=== PATIENT | female | born 1975 | race Two or more races ===

== ENCOUNTER → 2018-04-29 | Day surgery (SDC) | payer MEDICAID ==
[~2018-04-29] MED LIST: GLYCOPYRROLATE 0.2 MG/ML 1ML VIAL ONE; KETOROLAC TROMETH 30 MG/ML 1ML VIAL IV ONE; KETOROLAC TROMETH 60MG/2ML VIAL IM ONE; MEPERIDINE HCL (50 MG/ML) 1 ML VIAL ONE; METOCLOPRAMIDE HCL 5MG/ml INJ 2ml VIAL IV ONE; MIDAZOLAM HCL 1MG/1ML-2 ML VIAL ONE; NEOSTIGMINE 1 MG/ML INJ (10mg/10ML VIAL) ONE; ONDANSETRON HCL 4 MG/2 ML VIAL ONE; PROPOFOL 10 MG/ML 20 ML IV ONE; ROCURONIUM 10MG/ML 10ML VIAL IV ONE; SODIUM CHLORIDE LOCK 10 ML ONE; SUCCINYLCHOLINE CHLORIDE 20 MG/ML 10ML VIAL IV ONE; fentaNYL CITRATE 100 MCG/2 ML VL IV ONE; fentaNYL CITRATE 100 MCG/2 ML VL ONE
[2018-04-29 09:51] VITALS: BP 111/64
== END ==
LOC: SUR 06:42
PROVIDERS: ATTEND Obstetrics & Gynecology Gynecologic Oncology
DX: D26.9 Other benign neoplasm of uterus, unspecified (principal); Z30.2 Encounter for sterilization; N92.0 Excessive and frequent menstruation with regular cycle; Z30.432 Encounter for removal of intrauterine contraceptive device; N73.6 Female pelvic peritoneal adhesions (postinfective); E66.9 Obesity, unspecified; K21.9 Gastro-esophageal reflux disease without esophagitis; Z3A.08 8 weeks gestation of pregnancy; Z90.49 Acquired absence of other specified parts of digestive tract; Z90.710 Acquired absence of both cervix and uterus; Z68.32 Body mass index [BMI] 32.0-32.9, adult
CPT/HCPCS: 58562; 58671; J2175; J2765; J3010; J7030; J0330; J1885; J2250; J2405; J2704

== ENCOUNTER 2022-06-23 15:33 | Emergency (ER) | payer BC, MEDICAID ==
[~2022-06-23] VITALS: Ht 139.7 cm; Wt 68.5 kg
[2022-06-23 17:12] LABS: Basophils # (auto) 0 10 ^3/uL (0-0.2); Basophils % (auto) 0.5 % (0.0-2.0); Eosinophils # (auto) 0.1 10 ^3/uL (0-0.8); Eosinophils % (auto) 1.6 % (0.0-7.0); Hematocrit 41.8 % (36.0-46.0); Hemoglobin 14.3 g/dL (12.2-16.2); Lymphocytes # (auto) 2.5 10 ^3/uL (0.4-5.4); Lymphocytes % (auto) 40.7 % (10.0-50.0); Mean Corpuscular Hemoglobin 29.4 pg (28.0-32.0); Mean Corpuscular Hgb Conc. 34.3 g/dL (32.0-36.0); Mean Corpuscular Volume 85.8 fL (80.0-100.0); Monocytes # (auto) 0.4 10 ^3/uL (0-1.3); Monocytes % (auto) 6.6 % (0.0-12.0); Neutrophils # (auto) 3.1 10 ^3/uL (1.6-8.6); Neutrophils % (auto) 50.6 % (37.0-80.0); Nucleated Red Blood Cells % 0.1 %; Red Blood Cells 4.87 10^6/uL (4.0-5.20); Red Cell Distribution Width 13.3 % (11.8-14.3)
[2022-06-23 17:19] LABS: BUN/Creatinine Ratio 17.8; Bilirubin, Total 0.4 mg/dL (0.2-1.0); Total Protein 7.6 g/dL (6.4-8.2)
[2022-06-23] MEDS ORDERED: POTASSIUM CHL 20 Meq TABLET PO ONE (18:45)
[2022-06-23] MEDS ORDERED: POTA10TA51 PO (18:46)
[2022-06-23 22:23] VITALS: BP 131/72
== END 2022-06-23 22:23 | disposition home or self-care (01) ==
LOC: ER 15:38
DX: F41.9 Anxiety disorder, unspecified (principal); E87.6 Hypokalemia; E78.5 Hyperlipidemia, unspecified; I10 Essential (primary) hypertension; Z90.89 Acquired absence of other organs; Z98.51 Tubal ligation status
CPT/HCPCS: 36415; 70450; 80053; 84484; 85025; 93005